=== PATIENT | female | born 1985 | race Caucasian/White ===

== ENCOUNTER 2018-07-25 13:01 | Observation (INO) | payer BC ==
[~2018-07-25] VITALS: Ht 175.3 cm; Wt 117.0 kg
[2018-07-25 13:22] VITALS: BP 135/82
== END 2018-07-25 14:14 | disposition home or self-care (01) ==
LOC: LDH 13:01
PROVIDERS: ADMIT Specialist; ATTEND Specialist
DX: O26.893 Other specified pregnancy related conditions, third trimester (principal); M06.9 Rheumatoid arthritis, unspecified; Z3A.32 32 weeks gestation of pregnancy
CPT/HCPCS: 59025; 76819; G0378 ×2

== ENCOUNTER 2018-08-25 11:07 | Observation (INO) | payer BC ==
[~2018-08-25] VITALS: Ht 175.3 cm; Wt 118.8 kg
== END 2018-08-25 12:49 | disposition home or self-care (01) ==
LOC: LDH 11:07
PROVIDERS: ADMIT Specialist; ATTEND Specialist
DX: Z34.93 Encounter for supervision of normal pregnancy, unspecified, third trimester (principal); Z3A.36 36 weeks gestation of pregnancy
CPT/HCPCS: 59025; 76819; G0378 ×2